=== PATIENT | male | born 1995 | race Caucasian/White ===

== ENCOUNTER → 2021-05-18 | Outpatient (CLI) | payer BC, OTHER | LOC: SJCVCIMAG 14:03 | PROVIDERS: ATTEND Internal Medicine Cardiovascular Disease | DX: I07.1 Rheumatic tricuspid insufficiency (principal); R55 Syncope and collapse ==

== ENCOUNTER → 2021-07-14 | Outpatient (CLI) | payer BC, OTHER | LOC: MRI 09:30 | PROVIDERS: ATTEND Family Medicine | DX: R55 Syncope and collapse (principal); R56.9 Unspecified convulsions; H70.892 Other mastoiditis and related conditions, left ear ==

== ENCOUNTER → 2021-07-15 | Outpatient (CLI) | payer BC, OTHER ==
--- NOTE | ~2021-07-15 | EEG ---
[facility] [place] [address] ELECTROENCEPHALOGRAM Name: MICHA FAJARDO Room #: [facility] M..#: [id number] Admission: 07/15/21 Attend Phys: Jonathan Guaman MD Discharge: Date of : 89 Report #: [id number] THIS REPORT FOR: //name// DATE OF SERVICE: 07/15/2021 This patient is being evaluated for the possibility of seizure. EEG was done by placing the electrode by standard 10-20 system of electrode placement. Both referential and sequential montages were used for recording. Background activity in this patient's EEG is about 11-12 hours and 30 microvolt. This patient became drowsy and that is associated with bilateral slowing and vertex sharp waves. Photic stimulation is unremarkable. Throughout the record, no active epileptiform activity was noticed. IMPRESSION: This patient's EEG is within normal limits. It might be mentioned that EEG can be normal in a patient with seizure disorder. Thank you very much for this referral. By: [id number] Zaire Edwards MD /nt
== END ==
LOC: NEURO 08:36
PROVIDERS: ATTEND Family Medicine
DX: R55 Syncope and collapse (principal); R56.9 Unspecified convulsions